=== PATIENT | male | born 1985 | race Two or more races ===

== ENCOUNTER 2016-10-02 14:04 | Emergency (ER) | payer SELFPAY ==
--- NOTE | 2016-10-02 14:22 | EDM.PDOC ---
ED HPI GENERAL MEDICAL PROBLEM - General Chief Complaint: Chest Pain Stated Complaint: CHEST PAINS Time Seen by Provider: 10/02/16 14:15 - History of Present Illness INITIAL COMMENTS - FREE TEXT/NARRATIVE: 31-year-old male presents emergency room the chest pain. The patient has limited Indonesian. We were able to get the sound engineer audio control service. The much my examination was done without the service. Patient is been having 6 month history of chest discomfort. Had been seen in [place] where he was diagnosed with costochondritis he was treated with Flexeril and Naprosyn vacuum May. This has not really been getting any better. The patient does not have significant past medical history. He does not use illicit drugs smoke or use alcohol. Clarification: Using the sound engineer audio control service some questions were clarified. The patient has had Naprosyn and Flexeril initial prescriptions given in May he has not had any refills of these did help. The patient's has indeed been having symptoms for 6 months he has been working the same job for about a year where he does significant heavy lifting in this is the big trigger for his symptoms. I cannot clarify whether his symptoms into his arm are radicular. - Related Data Allergies Allergy/AdvReac Type Severity Reaction Status Date / Time No Known Allergies Allergy Verified 10/02/16 14:15 Home Meds: Home Meds Cyclobenzaprine [Flexeril] 10 mg PO BEDTIME #15 tablet 10/02/16 [Rx] Fish Oil/Huffman-3 Fatty Acids [Fish Oil 1,000 MG] 2 cap PO DAILY 10/02/16 [ History] Naproxen [Naprosyn] 500 mg PO Q12HR #30 tablet 10/02/16 [Rx] ED ROS GENERAL - Review of Systems Review Of Systems: See Below Constitutional: Reports: No Symptoms. Denies: Fever, Chills, Weakness, Fatigue HEENT: Reports: No Symptoms Respiratory: Reports: Other (Deep breathing can make the pain a little worse). Denies: Shortness of Breath Cardiovascular: Reports: Chest Pain. Denies: Blood Pressure Problem, Dyspnea on Exertion, Edema, Lightheadedness, Palpitations Endocrine: Reports: No Symptoms GI/Abdominal: Reports: No Symptoms : Reports: No Symptoms Neurological: Reports: No Symptoms ED EXAM, GENERAL - Physical Exam Exam: See Below Exam Limited By: No Limitations General Appearance: Alert, WD/WN Eye Exam: Bilateral Eye: Normal Inspection Nose: Normal Inspection, Normal Mucosa Throat/Mouth: Normal Inspection, Normal Lips, Normal Oropharynx, No Airway Compromise, Other (He's had multiple dental repairs in the past) Head: Atraumatic, Normocephalic Neck: Normal Inspection, Supple, Non-Tender. No: Lymphadenopathy (L), Lymphadenopathy (R) Respiratory/Chest: No Respiratory Distress, Lungs Clear, Normal Breath Sounds Cardiovascular: Regular Rate, Rhythm, No Edema, No Murmur GI/Abdominal: Normal Bowel Sounds, Soft, Non-Tender Back Exam: Normal Inspection. No: CVA Tenderness (L), CVA Tenderness (R) Extremities: Normal Inspection, No Pedal Edema Neurological: Alert, Oriented, Normal Cognition, Other (Examination of the left upper extremity is really unrevealing Tinel's sign is negative Phalen's and reverse Phalen's is negative) Psychiatric: Normal Affect Course - Re-Assessments/Exams Free Text/Narrative Re-Assessment/Exam: 10/02/16 16:45 Using a sound engineer audio control service some questions were clarified I still not clearly clarify whether his symptoms are radicular into his arms so MRI might be beneficial in the future. The patient will have his Flexeril refilled one nightly and he will continue the Naprosyn twice daily with meals. Discussed EKG chest x-ray and lab results with the patient. These are essentially unrevealing Departure - Departure Time of Disposition: 16:48 Disposition: Home, Self-Care 01 Clinical Impression: Chest wall pain, Cervical strain, Left arm pain Prescriptions: Naproxen [Naprosyn] 500 mg PO Q12HR #30 tablet Cyclobenzaprine [Flexeril] 10 mg PO BEDTIME #15 tablet Forms: ED Department Discharge Additional Instructions: Return to the emergency room with any questions problems or worsening symptoms. Follow-up at the Hospital clinic in 1 week for recheck. [phone] You may return to work however I do not want you lifting more than 20 pounds. Use your Flexeril, this is the muscle relaxant, at night. Resume the Naprosyn one twice daily take with food.
--- NOTE | 2016-10-02 15:00 | CR ---
Chest: Portable view of the chest was obtained. Comparison: No previous study. Heart size and mediastinum are normal. Minimal bronchial wall thickening is seen within the upper right hilum most likely chronic. Lungs otherwise are clear. Bony structures are grossly intact. Impression: 1. Findings felt to be incidental as noted above. Nothing acute is suspected on portable chest x-ray. Diagnostic code #2
[2016-10-02 17:48] VITALS: BP 121/83
== END 2016-10-02 17:15 | disposition home or self-care (01) ==
LOC: JD.ED 14:04
DX: S16.1XXA Strain of muscle, fascia and tendon at neck level, initial encounter (principal); R07.89 Other chest pain; M79.602 Pain in left arm; X50.9XXA Other and unspecified overexertion or strenuous movements or postures, initial encounter
CPT/HCPCS: 36415; 71010; 71010-26; 80053; 84484; 85025; 85610; 85652; 85730; 93005; 99283; 99285-25